=== PATIENT | male | born 1970 | race Caucasian/White ===

== ENCOUNTER → 2016-09-06 | Outpatient (CLI) | payer BC ==
[~2016-09-06] MED LIST: OMEP20TA PO
[2016-09-06 14:22] LABS: ALT/SGPT 45 U/L (12-78); AST/SGOT 24 U/L (15-37); BLOOD UREA NITROGEN 17 mg/dl (7-18); BUN/CREATININE RATIO 18.1 (10-20); CALCIUM 8.6 mg/dl (8.5-10.1); CARBON DIOXIDE 28 mmol/L (21-32); CHLORIDE 106 mmol/L (98-107); CREATININE 0.95 mg/dl (0.60-1.40); GLUCOSE 102 mg/dl (70-99); POTASSIUM 4.3 mmol/L (3.5-5.1); SODIUM 142 mmol/L (136-145)
[2016-09-06 14:28] LABS: ALB/GLOB RATIO 1.1 (0.9-2); ALKALINE PHOSPHATASE 40 U/L (45-117); CHOLESTEROL 213 mg/dl (0-200); CHOLESTEROL/HDL RATIO 4.3; HDL CHOLESTEROL 49 mg/dl; LDL CHOLESTEROL CALCULATED 133 mg/dl; PROSTATE SPECIFIC ANTIGEN 0.283 ng/ml (0.000-4.000); TRIGLYCERIDES 153 mg/dl (0-150); URIC ACID 6.8 mg/dl (2.6-7.2); VERY LOW DENSITY LIPOPROT CALC 31 mg/dl
== END | disposition home or self-care (01) ==
LOC: C.LABBFT 08:54
PROVIDERS: ATTEND Nurse Practitioner
DX: M10.9 Gout, unspecified (principal); E78.5 Hyperlipidemia, unspecified; Z12.5 Encounter for screening for malignant neoplasm of prostate

== ENCOUNTER → 2017-04-30 | Outpatient (CLI) | payer BC ==
[2017-04-30 12:39] LABS: BLOOD UREA NITROGEN 16 mg/dl (7-18); CALCIUM 9.5 mg/dl (8.5-10.1); CARBON DIOXIDE 29 mmol/L (21-32); CREATININE 1.07 mg/dl (0.60-1.40); GLUCOSE 111 mg/dl (70-99); POTASSIUM 4.3 mmol/L (3.5-5.1); SODIUM 137 mmol/L (136-145)
== END | disposition home or self-care (01) ==
LOC: C.LABBFT 07:43
PROVIDERS: ATTEND Nurse Practitioner
DX: I10 Essential (primary) hypertension (principal)

== ENCOUNTER 2017-05-28 19:25 | Emergency (ER) | payer BC ==
[~2017-05-28] VITALS: Ht 177.8 cm; Wt 147.8 kg
[2017-05-28 19:31] VITALS: O2SAT 95; Ht 177.8 cm; Wt 147.8 kg
[2017-05-28] MEDS ORDERED: SODIUM CHLORIDE 0.9% 1000ML 1,000 ML IV STA ×2 (19:58)
[2017-05-28 20:09] LABS: BASO % 0.4 %; BASO ABS # 0.04 K/uL (0-0.2); EOS ABS # 0.42 K/uL (0-0.5); HEMATOCRIT 43.4 % (42-52); HEMOGLOBIN 15.5 g/dL (14.0-18.0); IG# 0.03 K/uL (0.00-0.02); LYMPH % 21.8 %; LYMPH ABS # 2.27 K/uL (1.2-3.4); MEAN CELL VOLUME 89.3 fL (80-100); MEAN CORPUSCULAR HEMOGLOBIN 31.9 pg (25-34); MEAN CORPUSCULAR HGB CONC 35.7 g/dl (32-36); MEAN PLATELET VOLUME 11.1 fL (7.4-10.4); MONO % 4.6 %; MONO ABS # 0.48 K/uL (0.11-0.59); NEUT % 68.9 %; NEUT ABS # 7.15 K/uL (1.4-6.5); PLATELET COUNT 263 K/uL (130-400); RED CELL DISTRIBUTION WIDTH CV 12.6 % (11.5-14.5); RED CELL DISTRIBUTION WIDTH SD 40.7 fL (36.4-46.3); WHITE BLOOD COUNT 10.39 K/uL (4.8-10.8)
[2017-05-28 20:31] LABS: CALCIUM 9.4 mg/dl (8.5-10.1); CREATININE 1.16 mg/dl (0.60-1.40); POTASSIUM 3.7 mmol/L (3.5-5.1)
[2017-05-28] MEDS ORDERED: FENTANYL CITRATE INJ 50 MCG/1 ML 2 ML VIAL ONE (20:44)
[2017-05-28] MEDS ORDERED: MIDAZOLAM HCL 1 MG/ML 2ML VIAL ONE (20:44)
--- NOTE | 2017-05-28 20:54 | Gastrointestinal Consultation ---
Gastrointestinal Consultation Date of Consultation: May 28, 2017 Attending Physician: Dr. Mosley Consulting Physician: Dr. Choe Reason for Consultation: Acute dysphagia History of Present Illness Patient is a 46 year old male who presented to the [facility] this evening complaining of acute dysphagia. He states that he was eating a bite of ham pot pie, and "felt it lodge in my throat." He states that this did occur on one other episode approximately 10-12 years ago, and required EGD with dilation. He states that since that time he has not been able to eat or drink anything, and has been regurgitating his saliva. He denies daily GERD symptoms, has not seen a urogynaecologist, and does not take acid suppression daily. He denies any fevers, chills, nausea, hematemesis, melena or hematochezia, chest pain or SOB. He has no further complaints. 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) Allergies Coded Allergies: Penicillins (Verified Allergy, Unknown, UNKNOWN, 06/21/12) Current Medications Home Meds and Scripts Medications Dose Route/Sig Max Daily Dose Days Date Category Omeprazole 20 Mg Tab 1 Tab PO DAILY 06/21/12 Rx Review of Systems Constitutional: No fever, No chills Eyes: No eye pain ENT: + trouble swallowing, No unusual epistaxis, No sore throat Respiratory: No cough, No sputum Cardiac: No chest pain Abdomen: + dysphagia, No nausea, No GI bleeding Musculoskeletal: No joint pain Male : No dysuria Neuro: No numbness/tingling Psych: No anhedonism Heme: No night sweats Endo: No excessive thirst Skin: No rash, No itch Physical Exam Date Time Temp Pulse Resp B/P (MAP) Pulse Ox O2 Delivery O2 Flow Rate FiO2 05/28/17 19:31 37.3 93 20 153/100 95 Room Air General Appearance: no apparent distress, + obese Eyes: normal inspection, EOMI ENT: hearing grossly normal Neck: supple, no adenopathy Respiratory/Chest: lungs clear Cardiovascular: regular rate, rhythm Abdomen: normal bowel sounds, non tender, soft Extremities: normal range of motion Neurologic/Psych: alert, normal mood/affect, oriented x 3 Skin: normal color, no jaundice Laboratory Results Last 24 Hours Test 05/28/17 19:53 White Blood Count 10.39 K/uL Red Blood Count 4.86 M/uL Hemoglobin 15.5 g/dL Hematocrit 43.4 % Mean Corpuscular Volume 89.3 fL Mean Corpuscular Hemoglobin 31.9 pg Mean Corpuscular Hemoglobin Concent 35.7 g/dl Platelet Count 263 K/uL Mean Platelet Volume 11.1 fL Neutrophils (%) (Auto) 68.9 % Lymphocytes (%) (Auto) 21.8 % Monocytes (%) (Auto) 4.6 % Eosinophils (%) (Auto) 4.0 % Basophils (%) (Auto) 0.4 % Neutrophils # (Auto) 7.15 K/uL Lymphocytes # (Auto) 2.27 K/uL Monocytes # (Auto) 0.48 K/uL Eosinophils # (Auto) 0.42 K/uL Basophils # (Auto) 0.04 K/uL RDW Standard Deviation 40.7 fL RDW Coefficient of Variation 12.6 % Immature Granulocyte % (Auto) 0.3 % Immature Granulocyte # (Auto) 0.03 K/uL Sodium Level 137 mmol/L Potassium Level 3.7 mmol/L Chloride Level 102 mmol/L Carbon Dioxide Level 24 mmol/L Anion Gap 11.0 mmol/L Blood Urea Nitrogen 14 mg/dl Creatinine 1.16 mg/dl Est Creatinine Clear Calc Drug Dose 115.8 ml/min Estimated GFR () 87.0 Estimated GFR (Non- 75.1 BUN/Creatinine Ratio 12.4 Random Glucose 114 mg/dl Calcium Level 9.4 mg/dl Impression Patient is a 46 year old male with acute dysphagia and inability to tolerate his own secretions. Plan 1) NPO 2) Emergent EGD now
--- NOTE | 2017-05-28 21:39 | [facility] Post Operative Brief Note ---
Immediate Operative Summary Operative Date May 28, 2017. Pre-Operative Diagnosis Acute Dysphagia with Food Impaction Post-Operative Diagnosis 1) Esophageal stricture with Food Impaction s/p removal 2) Esophagitis Procedure(s) Performed EGD with Food bolus removal Surgeon Dr Monroy Swaging Machine Adjuster Surgeon(s) N/A Estimated Blood Loss 0cc Findings Food bolus in the esophagus Esophageal stricture Esophagitis Specimens None as per Surgeon Complication(s) None Disposition Surgical ICU
--- NOTE | 2017-05-28 21:52 | GI REPORT ---
Procedure Date: 05/28/2017 8:40 PM Procedure: Upper GI endoscopy Indications: Foreign body in the esophagus, Esophageal dysphagia Medicines: Monitored Anesthesia Care, General Anesthesia Complications: No immediate complications. Estimated Blood Loss: Estimated blood loss: none. Procedure: Pre-Anesthesia Assessment: - Prior to the procedure, a History and Physical was performed, and patient medications and allergies were reviewed. The patient's tolerance of previous anesthesia was also reviewed. The risks and benefits of the procedure and the sedation options and risks were discussed with the patient. All questions were answered, and informed consent was obtained. Prior Anticoagulants: The patient has taken no previous anticoagulant or antiplatelet agents. ASA Grade Assessment: II - A patient with mild systemic disease. After reviewing the risks and benefits, the patient was deemed in satisfactory condition to undergo the procedure. After obtaining informed consent, the endoscope was passed under direct vision. Throughout the procedure, the patient's blood pressure, pulse, and oxygen saturations were monitored continuously. The Scope was introduced through the mouth, and advanced to the second part of duodenum. The upper GI endoscopy was accomplished without difficulty. The patient tolerated the procedure well. Findings: Food was found in the distal esophagus. Removal of food was accomplished via aid of Rat-toothed forceps and gentle push technique. One benign-appearing, intrinsic stenosis was found 41 cm from the incisors. This stenosis was moderately severe and measured 1.2 cm (inner diameter) x 1 cm (in length). The stenosis was traversed. Moderately severe esophagitis with bleeding was found in the distal esophagus. The stomach was normal. The examined duodenum was normal. Impression: - Food in the distal esophagus. Removal was successful. - Benign-appearing esophageal stenosis. - Moderately severe acute esophagitis. - Normal stomach. - Normal examined duodenum. Recommendation: - Soft diet for 2 weeks. - Use Protonix (pantoprazole) 40 mg PO BID for 6 weeks. - Repeat upper endoscopy in 2 weeks to check healing and for dilation of esophageal stricture.. - Return to GI office at appointment to be scheduled. Porfirio Choe DO 05/28/2017 9:51:30 PM This report has been signed electronically. Note Initiated On: 05/28/2017 8:40 PM I attest to the content of the Intraoperative Record and orders documented therein, exceptions below
[2017-05-28] MEDS ORDERED: LIDOCAINE HCL 2% 2 ML VIAL (20MG/ML) ONE (22:02)
[2017-05-28] MEDS ORDERED: ONDANSETRON INJ 2 MG/ML 2 ML VIAL ONE (22:02)
[2017-05-28] MEDS ORDERED: SUCCINYLCHOLINE CHLORIDE 20 MG/ML 10 ML VIAL IV ONE (22:02)
[2017-05-28] MEDS ORDERED: PROPOFOL IV EMULSION 10 MG/ML 20 ML VIAL IV ONE ×2 (22:02)
[2017-05-28] MEDS ORDERED: ONDANSETRON INJ 2 MG/ML 2 ML VIAL IV PRN (22:15)
[2017-05-28] MEDS ORDERED: ATROPINE SULFATE 0.1 MG/ML 5ML SYR IV PRN (22:15)
[2017-05-28 22:36] VITALS: BP 124/87; PULSE 80; TEMP 36.1; O2SAT 98
--- NOTE | 2017-05-28 22:37 | Discharge Instructions ---
Endoscopy Patient Instructions Date / Procedure(s) Performed May 28, 2017. EGD Allergy Information Coded Allergies: Penicillins (Verified Allergy, Unknown, UNKNOWN, 06/21/12) Discharge Date / Findings May 28, 2017. 1) Food impaction s/p removal 2) Esophageal stricture 3) Esophagitis Medication Instructions Start Protonix 40mg by mouth twice daily 1/2 hour prior to breakfast and dinner. Provider Instructions Activity Restrictions - No exercising or heavy lifting for 24 hours. - Do not drink alcohol the day of the procedure. - Do not drive a car or operate machinery until the day after the procedure. - Do not make any important decisions or sign important papers in 24 hours after the procedure. Following Day: - Return to full activity which may include returning to work/school. Diet Start your diet with liquids and light foods (jello, soup, juice, toast). Then eat your usual diet if not nauseated. Treatment For Common After Affects For mild abdominal pain, bloating, or excessive gas: - Rest - Eat lightly - Lie on right side Follow-Up Information Follow-up with Dr. Choe as scheduled Anesthesia Information What You Should Know You have had a procedure that required some medicine to reduce anxiety and discomfort. This treatment is called moderate sedation. After receiving the treatment, you may be sleepy, but you will be able to breathe on your own. The effects of the treatment may last for several hours. Follow these instructions along with Activity/Diet recommendations noted above: * Do NOT do anything where dizziness or clumsiness would be dangerous. * Rest quietly at home today, then you can be up and about tomorrow. * Have a responsible person stay with you the rest of today. * You may have had an I.V. today. If so, you may take the dressing off later today. Recommendations Call your doctor if: * Trouble breathing * Continuous vomiting for more than 24 hours * Temperature above 101 degrees * Severe abdominal pain or bloating * Pain not relieved by pain medicine ordered * There is increased drainage or redness from any incision * A large amount of rectal bleeding greater than 2-3 tablespoons. (If you had a polyp/s removed or have hemorrhoids, a small amount of blood - from the rectum is to be expected.) * You have any unanswered questions or concerns. IN THE EVENT OF A SERIOUS EMERGENCY, GO TO THE NEAREST EMERGENCY ROOM Your discharge instructions were prepared by provider Porfirio Choe. Patient Instructions Signature Page Diony Bloom Patient (or Guardian) Signature/Date: I have read and understand the instructions given to me by my caregivers. Caregiver/RN/Doctor Signature/Date: The above-named patient and/or guardian has received patient instructions on this date. + Original Patient Signature Page (only) stays with chart. Please make copy for patient.
--- NOTE | 2017-05-28 22:44 | Anesthesiology Progress Note ---
Anesthesia Post Op Note Date & Time May 28, 2017 at 22:44 Vital Signs Pain Intensity: 0 Vital Signs Past 12 Hours Date Time Temp Pulse Resp B/P (MAP) Pulse Ox O2 Delivery O2 Flow Rate FiO2 05/28/17 22:36 36.1 80 20 124/87 98 Room Air 05/28/17 22:35 36.1 81 22 124/87 97 Room Air 05/28/17 22:25 85 20 114/79 97 Room Air 05/28/17 22:15 83 18 123/84 98 Room Air 05/28/17 22:05 79 23 122/78 97 Oxymask 10 05/28/17 21:56 36.2 86 26 121/81 97 Oxymask 10 05/28/17 19:31 37.3 93 20 153/100 95 Room Air Notes Mental Status: alert / awake / arousable, participated in evaluation Pt Amnestic to Procedure: Yes Nausea / Vomiting: adequately controlled Pain: adequately controlled Airway Patency, RR, SpO2: stable & adequate BP & HR: stable & adequate Hydration State: stable & adequate Anesthetic Complications: no major complications apparent
[2017-05-28 23:02] VITALS: BP 130/77; PULSE 80; TEMP 36.1; O2SAT 98
--- NOTE | 2017-05-29 01:40 | EMERGENCY ROOM VISIT NOTE ---
History Report prepared by Bridget: Glen Herr Under the Supervision of: Dr. Ramesh Mosley M.D. First contact with patient: 19:36 Chief Complaint: FOOD BOLUS Stated Complaint: MEAT STUCK IN THROAT History of Present Illness The patient is a 46 year old male who presents to the Emergency Room with complaints of a constant foreign body obstruction in his throat beginning 45 minutes ago. The patient states that he took two bites of his dinner tonight before a bit of food became lodged in his esophagus. He notes that this is the third time that he has had a food bolus stuck in his throat. He reports that the first time this occurred the doctor did a scope on him to stretch out his esophagus. The patient states that he tried to vomit today, but was unable to dislodge the piece of food. He notes that he also tried to drink katharine mookie with no relief of his symptoms. He reports that his saliva keeps coming back up. Pt denies LOC, headache, fevers, chills, diaphoresis, visual changes, neck pain, chest pain, breathing difficulties, nausea, vomiting, abdominal pain, back pain, melena, hematochezia, urinary symptoms, numbness, weakness, lymphadenopathy, rash, or other complaints. Source of History: patient Onset: 45 minutes ago Position: neck Quality: other (foreign body obstruction) Timing: constant Associated Symptoms: + vomiting Note: He notes that his saliva keeps coming back up. Review of Systems See HPI for pertinent positives and negatives. A total of ten systems were reviewed and were otherwise negative. Past Medical & Surgical Medical Problems: (1) Bolus impaction of digestive tract Surgical Problems: (1) S/P foot surgery, right Family History Heart disease Hypertension Social History Smoking Status: Never Smoker Marital Status: Housing Status: lives with family Occupation Status: employed Current/Historical Medications Scheduled Omeprazole (Omeprazole), 1 TAB PO DAILY Allergies Coded Allergies: Penicillins (Verified Allergy, Unknown, UNKNOWN, 06/21/12) Physical Exam Vital Signs Date Time Temp Pulse Resp B/P (MAP) Pulse Ox O2 Delivery O2 Flow Rate FiO2 05/28/17 23:02 36.1 80 20 130/77 (94) 98 Room Air 05/28/17 22:36 36.1 80 20 124/87 98 Room Air 05/28/17 22:36 36.1 80 22 124/87 (99) 98 Room Air 05/28/17 22:35 36.1 81 22 124/87 97 Room Air 05/28/17 22:25 85 20 114/79 97 Room Air 05/28/17 22:15 83 18 123/84 98 Room Air 05/28/17 22:05 79 23 122/78 97 Oxymask 10 05/28/17 21:56 36.2 86 26 121/81 97 Oxymask 10 05/28/17 19:31 37.3 93 20 153/100 95 Room Air Physical Exam GENERAL: Awake, alert, uncomfortable appearing, in no distress HENT: Normocephalic, atraumatic. Oropharynx unremarkable. EYES: Normal conjunctiva. Sclera non-icteric. NECK: Supple. No nuchal rigidity. FROM. No masses. RESPIRATORY: Clear to auscultation. No wheezes. CARDIAC: Normal rate. Normal rhythm. No murmurs. No rubs. Extremities warm and well perfused. Pulses equal. No JVD. GI: Soft, non-distended. No tenderness to palpation. No rebound or guarding. No masses. RECTAL: Deferred. MUSCULOSKELETAL: Atraumatic. Chest examination reveals no tenderness. The back is symmetrical on inspection without obvious abnormality. There is no CVA tenderness to palpation. No joint edema. LOWER EXTREMITIES: Calves are equal size bilaterally and non-tender. No edema. No discoloration. NEURO: Normal sensorium. No sensory or motor deficits noted. SKIN: No rash or jaundice noted. Medical Decision & Procedures Laboratory Results 05/28/17 19:53 Red Blood Count 4.86, Mean Corpuscular Volume 89.3, Mean Corpuscular Hemoglobin 31.9, Mean Corpuscular Hemoglobin Concent 35.7, Mean Platelet Volume 11.1, Neutrophils (%) (Auto) 68.9, Lymphocytes (%) (Auto) 21.8, Monocytes (%) (Auto) 4.6, Eosinophils (%) (Auto) 4.0, Basophils (%) (Auto) 0.4, Neutrophils # (Auto) 7.15, Lymphocytes # (Auto) 2.27, Monocytes # (Auto) 0.48, Eosinophils # (Auto) 0.42, Basophils # (Auto) 0.04 05/28/17 19:53 Test 2/26/18 19:53 White Blood Count 10.39 K/uL (4.8-10.8) Red Blood Count 4.86 M/uL (4.7-6.1) Hemoglobin 15.5 g/dL (14.0-18.0) Hematocrit 43.4 % (42-52) Mean Corpuscular Volume 89.3 fL (80-100) Mean Corpuscular Hemoglobin 31.9 pg (25-34) Mean Corpuscular Hemoglobin Concent 35.7 g/dl (32-36) Platelet Count 263 K/uL (130-400) Mean Platelet Volume 11.1 fL (7.4-10.4) Neutrophils (%) (Auto) 68.9 % Lymphocytes (%) (Auto) 21.8 % Monocytes (%) (Auto) 4.6 % Eosinophils (%) (Auto) 4.0 % Basophils (%) (Auto) 0.4 % Neutrophils # (Auto) 7.15 K/uL (1.4-6.5) Lymphocytes # (Auto) 2.27 K/uL (1.2-3.4) Monocytes # (Auto) 0.48 K/uL (0.11-0.59) Eosinophils # (Auto) 0.42 K/uL (0-0.5) Basophils # (Auto) 0.04 K/uL (0-0.2) RDW Standard Deviation 40.7 fL (36.4-46.3) RDW Coefficient of Variation 12.6 % (11.5-14.5) Immature Granulocyte % (Auto) 0.3 % Immature Granulocyte # (Auto) 0.03 K/uL (0.00-0.02) Anion Gap 11.0 mmol/L (3-11) Est Creatinine Clear Calc Drug Dose 115.8 ml/min Estimated GFR () 87.0 Estimated GFR (Non- 75.1 BUN/Creatinine Ratio 12.4 (10-20) Calcium Level 9.4 mg/dl (8.5-10.1) Laboratory results reviewed by me Medications Administered Medications (Trade) Dose Ordered Sig/Jayde Route Start Time Stop Time Status Last Admin Dose Admin Sodium Chloride 1,000 ml @ 999 mls/hr Q1H1M STAT IV 05/28/17 19:58 05/28/17 20:58 DC 05/28/17 19:58 999 MLS/HR ED Course 1941: The patient was evaluated in room A12. A complete history and physical exam was performed. 1955: I discussed the patient's case with ASHLEY Contreras. He will be coming in to see the patient. He asked to start the patient on IV fluids. 1957: Sodium Chloride 1000 ml @ 999 mls/hr IV 2004: I reevaluated and updated the patient. 2030: Upon reexamination, the patient was stable. I discussed the test results and treatment plan with him. Discussed the patient's case with ASHLEY Contreras. Gastroenterology took the patient to the operating room for further treatment. Medical Decision The patient presented to the emergency department complaining of a possible esophageal food impaction. Differential includes food impaction, esophageal injury, stricture, infection, as well as others. Clinically the patient was doing well. He was unable to swallow liquids. An IV was established. His blood work is unremarkable. He was hydrated. Consultation was made with gastroenterology. The patient was evaluated in the Emergency Room by Dr. helms. He was taken to the endoscopy suite for treatment. He was found to have esophageal food impaction. He also had a stricture. He was discharged by gastroenterology. Blood Pressure Screening Patient's blood pressure: Elevated blood pressure Blood pressure disposition: Elevated BP felt to be situational Consults Time Called: 1954 Consulting Physician: ASHLEY Contreras Returned Call: 1955 Discussed the patient's case. Dr. Helms will be coming in to see the patient. He asked to start the patient on IV fluids. Impression Primary Impression: Food impaction of esophagus Scribe Attestation The scribe's documentation has been prepared under my direction and personally reviewed by me in its entirety. I confirm that the note above accurately reflects all work, treatment, procedures, and medical decision making performed by me. Departure Information Dispostion Other (Further Evaluation by Gastroenterology) Referrals Keturah Anthony, C.R.N.P. (PCP) Patient Instructions My [facility]
== END 2017-05-28 20:20 | disposition still patient (30) ==
LOC: C.EDB 19:27 → C.EDA 20:20
DX: T18.128A Food in esophagus causing other injury, initial encounter (principal); X58.XXXA Exposure to other specified factors, initial encounter; K22.2 Esophageal obstruction; K20.9 Esophagitis, unspecified; Z88.0 Allergy status to penicillin; I10 Essential (primary) hypertension; E66.9 Obesity, unspecified; Z68.42 Body mass index [BMI] 45.0-49.9, adult; Z98.890 Other specified postprocedural states; Z82.49 Family history of ischemic heart disease and other diseases of the circulatory system